=== PATIENT | male | born 1995 | race Hispanic/Latino ===

== ENCOUNTER → 2019-06-16 | Outpatient (CLI) | payer OTHER | END | disposition home or self-care (01) | LOC: EEVIPCON 10:20 → RAH 10:20 | PROVIDERS: ATTEND Internal Medicine | DX: M79.641 Pain in right hand (principal) | CPT/HCPCS: 73130 ==

== ENCOUNTER → 2019-06-17 | Outpatient (CLI) | payer OTHER | END | disposition home or self-care (01) | LOC: RAH 10:11 → EEVIPCON 10:11 | PROVIDERS: ATTEND Internal Medicine | DX: M79.10 Myalgia, unspecified site (principal) | CPT/HCPCS: 72040; 72070; 72100 ==